=== PATIENT | female | born 1960 | race Caucasian/White ===

== ENCOUNTER 2017-02-10 19:04 | Emergency (ER) | payer SELFPAY ==
[~2017-02-10] VITALS: Ht 160 cm; Wt 95.5 kg
[2017-02-10 19:05] VITALS: BP 263/128; PULSE 97; RESP 16; TEMP 98.9; O2SAT 98
[2017-02-10] MEDS ORDERED: ACET1TAB17 PO ×2 (19:44)
[2017-02-10] MEDS ORDERED: [UNRECOGNIZED DRUG - CODE] PO ×2 (19:44)
[2017-02-10] MEDS ORDERED: CARV12.52 PO ×2 (19:44)
[2017-02-10] MEDS ORDERED: LISI-515 PO ×2 (19:44)
[2017-02-10] MEDS ORDERED: SODIUM CHLOR 0.9% 1000 ML INJ 1,000 ML IV ONE ×2 (19:49)
[2017-02-10] MEDS ORDERED: diphenhydrAMINE HCL 50 MG/ML VIAL IVP ONE ×2 (20:00)
[2017-02-10] MEDS ORDERED: PROCHLORPERAZINE INJ 10 MG/2 ML VIAL IVP ONE ×2 (20:00)
--- NOTE | 2017-02-10 20:52 | PD ---
HPI Chief Complaint: Headache Time Seen by Provider: 19:40 Travel History International Travel<30 days: No Contact w/Intl Traveler<30days: No Traveled to known affect area: No History of Present Illness HPI Is a 56-year-old woman who presents to the emergency department complaining of headache and migraine. She is a history of hemiplegic migraines. She gets headaches that are severe several times a month. This headache started on Monday. She describes burning and feeling like her head is going to explode. She also had some chest tightness yesterday which she has had before with headaches but seem more persistent this time as well. Son also states she seemed confused at times. Blood pressures also been elevated. She states that they've had trouble before with her headaches and her blood pressure being elevated and they're not sure which was causing which. History Past Medical History Narrative Medical Hemiplegic migraines Tetanus Vaccination: < 5 Years Influenza Vaccination: No Social History Alcohol Use: No Tobacco Use: No Allergies-Medications (Allergen,Severity, Reaction): Coded Allergies: hydrocodone (Verified Allergy, Severe, Hives, 02/10/17) tramadol (Verified Allergy, Severe, Hives, 02/10/17) Reported Meds & Prescriptions Reported Meds & Active Scripts Active Reported Cambia (Diclofenac Potassium) 50 Mg Powd.pack 50 Mg PO Prodrin (Bpcujxibrvazy-Ncvgaqrm-Hqhtmwvellftw) 65-20-325 Mg Tab 1 Tab PO DIRECTED PRN Lisinopril 20 Mg Tab 20 Mg PO DAILY Carvedilol 12.5 Mg Tab 12.5 Mg PO ONCE Review of Systems Except as stated in HPI: all other systems reviewed are Neg Physical Exam Narrative GENERAL: The 56 year-old woman, appears uncomfortable but nontoxic. SKIN: Focused skin assessment warm/dry. HEAD: Atraumatic. Normocephalic. EYES: Pupils equal and round. No scleral icterus. No injection or drainage. ENT: No nasal bleeding or discharge. Mucous membranes pink and moist. NECK: Trachea midline. No JVD. CARDIOVASCULAR: Regular rate and rhythm. No murmur appreciated. RESPIRATORY: No accessory muscle use. Clear to auscultation. Breath sounds equal bilaterally. GASTROINTESTINAL: Abdomen soft, non-tender, nondistended. Hepatic and splenic margins not palpable. MUSCULOSKELETAL: No obvious deformities. No clubbing. No cyanosis. No edema. NEUROLOGICAL: Awake and alert. No obvious cranial nerve deficits. Motor grossly within normal limits. Normal speech. PSYCHIATRIC: Appropriate mood and affect; insight and judgment normal. Data Data Last Documented VS Vital Signs Date Time Temp Pulse Resp B/P (MAP) Pulse Ox O2 Delivery O2 Flow Rate FiO2 02/10/17 21:00 85 20 228/110 (149) 98 Room Air 02/10/17 19:05 98.9 Orders Orders Electrocardiogram (02/10/17 ) Complete Blood Count With Diff (02/10/17 19:49) Comprehensive Metabolic Panel (02/10/17 19:49) Troponin I (02/10/17 19:49) Iv Access Insert/Monitor (02/10/17 19:49) Prochlorperazine Inj (Compazine Inj) (02/10/17 20:00) Diphenhydramine Inj (Benadryl Inj) (02/10/17 20:00) Sodium Chlor 0.9% 1000 Ml Inj (Ns 1000 M (02/10/17 19:49) Vascular Access Team Consult/P PRN (02/10/17 20:11) Vascular Poc Ultrasound (02/10/17 ) Labs Laboratory Tests Test 02/10/17 20:25 White Blood Count 11.3 TH/MM3 Red Blood Count 5.50 MIL/MM3 Hemoglobin 15.8 GM/DL Hematocrit 47.8 % Mean Corpuscular Volume 87.0 FL Mean Corpuscular Hemoglobin 28.8 PG Mean Corpuscular Hemoglobin Concent 33.1 % Red Cell Distribution Width 14.0 % Platelet Count 260 TH/MM3 Mean Platelet Volume 8.5 FL Neutrophils (%) (Auto) 63.7 % Lymphocytes (%) (Auto) 27.2 % Monocytes (%) (Auto) 6.2 % Eosinophils (%) (Auto) 2.3 % Basophils (%) (Auto) 0.6 % Neutrophils # (Auto) 7.2 TH/MM3 Lymphocytes # (Auto) 3.1 TH/MM3 Monocytes # (Auto) 0.7 TH/MM3 Eosinophils # (Auto) 0.3 TH/MM3 Basophils # (Auto) 0.1 TH/MM3 CBC Comment DIFF FINAL Differential Comment Blood Urea Nitrogen 12 MG/DL Creatinine 0.74 MG/DL Random Glucose 90 MG/DL Total Protein 7.7 GM/DL Albumin 3.8 GM/DL Calcium Level 9.3 MG/DL Alkaline Phosphatase 118 U/L Aspartate Amino Transf (AST/SGOT) 28 U/L Alanine Aminotransferase (ALT/SGPT) 44 U/L Total Bilirubin 0.3 MG/DL Sodium Level 140 MEQ/L Potassium Level 3.9 MEQ/L Chloride Level 104 MEQ/L Carbon Dioxide Level 29.2 MEQ/L Anion Gap 7 MEQ/L Estimat Glomerular Filtration Rate 82 ML/MIN Troponin I LESS THAN 0.02 NG/ML MDM Medical Decision Making Medical Screen Exam Complete: Yes Emergency Medical Condition: Yes Interpretation(s) My review of EKG: Sinus rhythm at a rate of 80, normal axis, normal intervals, no acute ischemia. Incomplete right bundle branch block. LABS: CBC remarkable for mild anemia elevated H&H CMP unremarkable Troponin negative Differential Diagnosis Migraines, hypertensive crisis, stroke, bleed, infection, other Narrative Course Medical decision-making new INITIAL cause a 56 old woman who presents to the emergency department complaining of headache, elevated blood pressure, and some chest pressure yesterday. IV established given migraine cocktail, check labs and EKG. We'll reassess. 10:15 PM: Patient feeling much improved. Blood pressures improved as well. Do for evening medicines. Diagnosis Primary Impression: Migraine Additional Impression: Elevated blood pressure reading Additional Instructions: Continue current medications. Follow-up with her primary doctor in the next 2-4 days. Return to the ER for any new or worsening symptoms. Med/Other Pt SpecificInfo: Prescription(s) given Disposition: 01 DISCHARGE HOME Condition: Stable Drew Zhang MD Feb 10, 2017 20:52
[2017-02-10 21:00] VITALS: BP 228/110; PULSE 85; RESP 20; O2SAT 98
[2017-02-10 21:14] LABS: AUTOMATED NEUTROPHIL # 7.2 TH/MM3 (1.8-7.7); BASOPHIL # 0.1 TH/MM3 (0-0.2); BASOPHIL % 0.6 % (0.0-2.0); EOSINOPHIL # 0.3 TH/MM3 (0-0.4); EOSINOPHIL % 2.3 % (0.0-4.0); HEMATOCRIT 47.8 % (35.0-46.0); HEMOGLOBIN 15.8 GM/DL (11.6-15.3); LYMPH % 27.2 % (9.0-44.0); LYMPHOCYTE # 3.1 TH/MM3 (1.0-4.8); MEAN CORPUSCULAR HEMOGLOBIN 28.8 PG (27.0-34.0); MEAN CORPUSCULAR HGB CONC 33.1 % (32.0-36.0); MEAN PLATELET VOLUME 8.5 FL (7.0-11.0); MONO % 6.2 % (0.0-8.0); MONOCYTE # 0.7 TH/MM3 (0-0.9); NEUT % 63.7 % (16.0-70.0); PLATELET COUNT 260 TH/MM3 (150-450); WHITE BLOOD COUNT 11.3 TH/MM3 (4.0-11.0)
[2017-02-10 21:26] LABS: ALBUMIN 3.8 GM/DL (3.4-5.0); AST (GOT) 28 U/L (15-37); BICARBONATE 29.2 MEQ/L (21.0-32.0); BLOOD UREA NITROGEN 12 MG/DL (7-18); CALCIUM 9.3 MG/DL (8.5-10.1); CHLORIDE 104 MEQ/L (98-107); CREATININE 0.74 MG/DL (0.50-1.00); GLOMERULAR FILTRATION RATE 82 ML/MIN (>89); GLUCOSE,RANDOM 90 MG/DL (74-106); SODIUM (NA) 140 MEQ/L (136-145)
[2017-02-10 21:31] LABS: ALKALINE PHOSPHATASE 118 U/L (45-117); ALT (GPT) 44 U/L (10-53); TOTAL BILIRUBIN ADULT 0.3 MG/DL (0.2-1.0); TOTAL PROTEIN 7.7 GM/DL (6.4-8.2); TROPONIN I LESS THAN 0.02 NG/ML (0.02-0.05)
[2017-02-10 22:17] VITALS: BP 190/86; PULSE 85; RESP 18; O2SAT 98
[2017-02-10] MEDS ORDERED: LISINOPRIL 20 MG TAB PO ONE ×2 (22:30)
--- NOTE | 2017-02-12 21:06 | EKG ---
Date Performed: 02/10/2017 Time Performed: 21:15:20 PTAGE: 56 years EKG: Sinus rhythm WITH SINUS ARRHYTHMIA INCOMPLETE RIGHT BUNDLE BRANCH BLOCK BORDERLINE ECG NO PREVIOUS TRACING DOCTOR: Madison John Interpretating Date/Time 02/12/2017 20:57:26
== END 2017-02-10 22:42 | disposition home or self-care (01) ==
LOC: NEPE 19:04
DX: G43.909 Migraine, unspecified, not intractable, without status migrainosus (principal); R03.0 Elevated blood-pressure reading, without diagnosis of hypertension; R07.89 Other chest pain; I49.8 Other specified cardiac arrhythmias; I45.10 Unspecified right bundle-branch block; D64.9 Anemia, unspecified; Z79.899 Other long term (current) drug therapy
CPT/HCPCS: 80053; 84484; 85025; 93005; 96361; 96374; 96375; 99284; J0780; J1200; J7030